=== PATIENT | male | born 1970 | race Caucasian/White ===

== ENCOUNTER → 2018-12-27 09:45 | Outpatient (CLI) | payer OTHER | END | disposition home or self-care (01) | LOC: D.MRI 09:45 | PROVIDERS: ATTEND Orthopaedic Surgery | DX: M75.101 Unspecified rotator cuff tear or rupture of right shoulder, not specified as traumatic (principal) ==

== ENCOUNTER 2019-02-10 05:20 | Day surgery (SDC) | payer OTHER ==
[~2019-02-10] VITALS: Ht 180.3 cm; Wt 102.1 kg
[2019-02-10] MEDS ORDERED: IBUPROFEN600 MG PO (05:53)
[2019-02-10 06:11] VITALS: BP 137/85; Ht 180.3 cm; Wt 102.1 kg
[2019-02-10] MEDS ORDERED: HYDROCODON-ACE1 EA10 PO (08:45)
--- NOTE | 2019-02-10 09:05 | NUR ---
REINFORCED DRESSING TO RT SHOULDER PER DRS ORDER IN RR
--- NOTE | 2019-02-10 10:11 | NUR ---
IV REMOVED WITH CATHALON INTACT. ALL DISCHARGE INSTRUCTIONS GIVEN.
--- NOTE | 2019-02-17 11:34 | OP ---
PATIENT NAME: RAYA TAYLOR MEDICAL RECORD: [id number] :68 LOCATION:[facility] ADMISSION DATE: SURGEON: MARYCRUZ ROSE MD DATE OF OPERATION: 02/10/2019 PREOPERATIVE DIAGNOSIS: SLAP lesion of the right shoulder with impingement syndrome. POSTOPERATIVE DIAGNOSIS: SLAP lesion of the right shoulder with impingement syndrome. PROCEDURES: 1. Arthroscopic SLAP repair of the right shoulder. 2. Arthroscopic distal clavicle excision done through separate incision - 1 cm. 3. Arthroscopic subacromial decompression, acromioplasty, and bursectomy. SURGEON: Marycruz Rose MD ANESTHESIA: General. INTRAOPERATIVE COMPLICATIONS: None. SUMMARY OF PATHOLOGIC FINDINGS: As consistent with the preoperative MRI and preoperative examination, the patient was indeed found to have a superior labral tear requiring anchorage. The patient also had downward sloping acromion with excoriation of the coracoacromial ligament as well as some attritional change of the rotator cuff. No full-thickness tear was noted. The patient also had grade IV chondromalacia of the acromioclavicular joint with hypertrophic spurring. OPERATIVE SUMMARY IN DETAIL: After obtaining the appropriate preoperative orthopedic surgery consent as well as anesthetic consultation, evaluation, and clearance, the patient was brought to the operating room and placed on the operating table in supine position. After general laryngeal mask airway was administered, the patient was placed in a left lateral decubitus position. All pressure points were well padded to include down leg peroneal pad as well as axillary roll. The patient was held firmly to the operating table using the VAC suction system. Right upper extremity and shoulder were then prepped and draped in routine sterile fashion. The arm was held in the Arthrex traction boom at 30 degrees of forward flexion, 30 degrees of abduction with 10 pounds of traction laterally. Arthroscopy was established in the glenohumeral joint from the posterior portal. Anterior portal was established in the anterior safe interval. Diagnostic arthroscopy did show the patient had a bicipital labral tear from approximately 4 mm posterior to the bicipital labral junction as well as anterior down to approximately equator. At this point, the arthroscopic resector device was utilized to prepare the superior and anterior aspect of the labrum for reapproximation. A total of 3 PushLocks were utilized for labral repair. This was done with labral tape in a knotless fashion to reapproximate the labrum from anterior to just posterior to the bicipital labral junction. This resulted in good repair of the labrum back to the glenoid surface. Having completed this, attention was then turned to the subacromial space. While in the subacromial space, the [place] tissue ablation system was utilized to denude the undersurface of the acromion of all soft tissue elements and then a 5-0 barrel bur was used for acromioplasty at the level of acromioclavicular joint. Attention was then turned to the distal clavicle. Through a separate anterior portal under direct arthroscopic visualization, distal clavicle was excised for OPERATIVE REPORT [id number] RAYA TAYLOR 1 cm and the inferior and superior osteophytes were removed. Lastly, the subacromial bursa was taken down superiorly, anteriorly, laterally and posteriorly. The rotator cuff was visualized and had some attritional changes; however, no tearing. Full thickness was noted. Having completed this, arthroscopy portals were closed in routine interrupted fashion. Sterile dressings were applied. The patient was awakened and taken to recovery room in stable condition. All final needle and sponge counts were correct. TRANSINT:[id number] Voice Confirmation ID: [id number] DOCUMENT ID: [id number] ROSE BRIONES, MARYCRUZ DOS SANTOS at 1134 CC: [id number] DICTATION DATE: 02/16/19 0947 DIGITAL SALES ASSISTANT: 02/16/19 1223 [facility] 02/10/19 [id number] [place] [address]
== END 2019-02-10 10:30 | disposition home or self-care (01) ==
LOC: D.OPS 05:20 → D.PAN 07:30 → D.OPS 10:30
PROVIDERS: ATTEND Orthopaedic Surgery
DX: S43.431A Superior glenoid labrum lesion of right shoulder, initial encounter (principal); X58.XXXA Exposure to other specified factors, initial encounter; M75.41 Impingement syndrome of right shoulder; Z01.812 Encounter for preprocedural laboratory examination

== ENCOUNTER 2019-05-16 05:19 | Day surgery (SDC) | payer OTHER ==
[~2019-05-16] VITALS: Ht 180.3 cm; Wt 102.1 kg
[~2019-05-16 05:19] MED LIST: HYDROCODON-ACE1 EA10 PO; IBUPROFEN600 MG PO
[2019-05-16 06:29] VITALS: BP 140/83; Ht 180.3 cm; Wt 102.1 kg
--- NOTE | 2019-05-16 07:35 | NUR ---
LARGE ARM SLING APPLIED
[2019-05-16] MEDS ORDERED: HYDROCODON-ACE1 EA10 PO (08:23)
--- NOTE | 2019-05-16 08:40 | NUR ---
0858 DR. ROSE CARDONA. DC DIET ORDERED. INSTRUCTIONS GIVEN.
--- NOTE | 2019-05-26 09:16 | OP ---
PATIENT NAME: RAYA TAYLOR MEDICAL RECORD: [id number] :68 LOCATION:[facility] ADMISSION DATE: SURGEON: MARYCRUZ ROSE MD DATE OF OPERATION: 05/16/2019 PREOPERATIVE DIAGNOSIS: Arthrofibrosis of the right shoulder - adhesive capsulitis. POSTOPERATIVE DIAGNOSIS: Arthrofibrosis of the right shoulder - adhesive capsulitis. PROCEDURE: Right shoulder manipulation under TIVA anesthesia. SURGEON: Marycruz Rose MD INTRAOPERATIVE COMPLICATIONS: None. SUMMARY OF PATHOLOGIC FINDINGS: The patient did have tight shoulder with manipulation, resulted in excellent range of motion, good result. OPERATIVE SUMMARY IN DETAIL: After obtaining the appropriate preoperative orthopedic surgery consent as well as anesthetic consultation, evaluation and clearance, the patient was brought to the operating room and left on his [facility]. After adequate TIVA anesthesia was administered, the patient's scapula was stabilized and manipulation was first carried out in abduction followed by external rotation, internal rotation, as well as forward flexion. Having completed this, the patient was awakened, taken to outpatient department in stable condition. TRANSINT:[id number] Voice Confirmation ID: [id number] DOCUMENT ID: [id number] MARYCRUZ ROSE MD at 0916 CC: [id number] DICTATION DATE: 05/25/19 1124 TANKAGE GRINDER: 05/25/19 1218 [facility] 05/16/19 [id number] [place] [address]
== END 2019-05-16 09:35 | disposition home or self-care (01) ==
LOC: D.OPS 05:19 → D.PAN 07:30 → D.OPS 09:35 → D.PAN 10:30 → D.OPS 10:30
PROVIDERS: ATTEND Orthopaedic Surgery
DX: S43.431A Superior glenoid labrum lesion of right shoulder, initial encounter (principal); X58.XXXA Exposure to other specified factors, initial encounter; M75.41 Impingement syndrome of right shoulder; Z01.812 Encounter for preprocedural laboratory examination